=== PATIENT | female | born 1980 | race Caucasian/White ===

== ENCOUNTER 2022-10-25 02:37 | Day surgery (SDC) | payer OTHER, SELFPAY ==
[2022-10-18 14:03] VITALS: BMI 33.3
--- NOTE | 2022-10-18 14:14 | PC.NURSE ---
Report to the Outpatient Waiting Room, entrance under the green pavilion located off [facility], at 1000 on 10/25/22. Planned Procedure Time: 1200. Time changes happen often and if your time is changed the preop area will call you the afternoon before. - You and your visitor will be asked to self-screen and do not enter if you have any COVID symptoms. - Only one visitor is requested with a max of two and NO children visitors are allowed at this time. - The patient visitor may be requested to leave or wait in car when not with patient due to distancing restrictions. - A mask is optional within the hospital at this time. Patients may have clear liquids (water, carbonated beverages, clear teas, apple juice) until 3 hours prior to surgery with a maximum of 20 ounces. - No food from midnight until time of surgery Take the following medications with a SIP of water the morning of surgery: N/A DO NOT STOP ANY OF YOUR OTHER PRESCRIPTION MEDICATIONS PRIOR TO SURGERY ?EXCEPT THE FOLLOWING Medications to discontinue per physician N/A Date to take last dose N/A Please no make-up, nail arabic, hairspray, perfume, deodorant, or body powder the day of surgery. No jewelry (including any body piercings) or valuables the day of surgery, leave them at home. Please take a shower or bath the night before, or the morning of, surgery with an antibacterial soap. Wear comfortable, loose fitting clothing. - Jewelry must be removed prior to entering the operating room. Rings and piercings that are not removed may be cut off. - The hospital will not accept responsibility for valuables. - Please leave all valuables, including medications, at home the day of surgery. If you are going home after surgery, a licensed special needs bus driver must drive you home. - NO public transportation without another adult if you receive anesthesia. - We recommend that an adult stay with you for 24 hours following discharge. - We also recommend that you do not drive, make important decision, drink alcoholic beverages, or take any drugs that were not prescribed by your health care provider for at least 24 hours after your discharge time. Follow any additional instructions given to you from your surgeon. If you or anyone in your household have experienced Covid symptoms in the past week, please notify your surgeon or the nurse liaison at the phone number below for possible testing. Telephone instructions given to patient and asked if any additional questions and then verbalized understanding. Patient advised to call surgeon office or pre surgery nurse liaison [phone] if any additional questions.
--- NOTE | 2022-10-25 10:52 | WPDANESEPPF ---
Anes - Initial Pre Proc Eval Procedure: Operation Date: 10/25/22 12:00 Proposed Procedures p Excision of Left Subareolar Breast Cyst - Francis Davis DO Date/Time: 10/25/22 10:52 Surgeon: Francis Davis DO Pre Op Diagnosis: Left Breast Cyst (2cm) Patient Data Age: 42 Gender: F Height: 1.88 m Weight: 117.93 kg Allergies Allergy/AdvReac Type Severity Reaction Status Date / Time No Known Allergies Allergy Verified 10/18/22 14:02 Home Medications Medication Instructions Recorded Confirmed Type No Home Medications 10/18/22 10/18/22 History Patient hx anesthesia problems: none Family hx anesthesia problems: none Results Review: All pre-operative results and documents have been reviewed as part of the pre-operative evaluation. 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 Substance use: current Substance use type: marijuana Other substance usage details: daily Living arrangements: with family Occupation/Education: occupation 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 Informed Consent: The patient's anesthetic plan and its attendant risks and benefits were discussed with the patient/family/POA. Questions were solicited and answers provided to the satisfaction of the patient/family/POA.
[2022-10-25 11:00] VITALS: BP 125/80; PULSE 81; RESP 14; TEMP 36.3; O2SAT 99
[2022-10-25] MEDS: KETOROLAC 15 MG/ML VIAL (*BKC) IV PUSH ×2 (11:00)
[2022-10-25] MEDS: LACTATED RINGERS 1,000 ML 30 ML IV CONT (11:00)
[2022-10-25] MEDS: ACETAMINOPHEN 500 MG TABLET 1000 MG PO ×2 (11:00)
--- NOTE | 2022-10-25 11:43 | PM.IMHP ---
H&P: HPI History of Present Illness Date/Time: 10/25/22 11:43 Chief Complaint: Left breast cyst Narrative: 42 yo woman presents for excision of left breast cyst. She reports no changes since last seen in office. Review of Systems Review of Systems: All systems reviewed & are unremarkable except as noted in HPI and below Constitutional: Constitutional: Denies chills, Denies fever(s), Denies headache(s) and Denies weight loss Eyes: Eyes: Denies change in vision ENT: Denies dizziness, Denies headache(s), Denies neck mass and Denies throat swelling Cardiovascular: Cardiovascular: Denies chest pain, Denies lightheadedness and Denies dyspnea Respiratory: Respiratory: Denies cough, Denies dyspnea and Denies wheezing Gastrointestinal: Gastrointestinal: Denies abdominal pain, Denies change in bowel habits, Denies nausea and Denies vomiting Genitourinary: Genitourinary: Denies hematuria and Denies dysuria Musculoskeletal: Musculoskeletal: Reports as per HPI Integumentary/Breasts: Skin/Breast: Reports as per HPI Neurologic: Denies dizziness and Denies headache(s) Allergic/Immunologic: Allergic/Immunologic: Denies throat swelling and Denies wheezing PMF Past Medical History Medical History Anxiety Obesity Surgical History Surgical History History of knee surgery Family History Family History Father Family history of malignant neoplasm, Onset Age: 45 Mother Family history of coronary artery disease, Onset Age: 59 Social History Social History Smoking packs per day: 1 Smoking cigarettes per day: 20.0 Years smoked: 30 Smoking pack-years: 30.00 Smoking status: Former smoker Tobacco type: cigarettes Second hand tobacco smoke exposure: No Alcohol intake: former 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 Substance use: current Substance use type: marijuana Other substance usage details: daily Living arrangements: with family Occupation/Education: occupation 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 Spiritual care concerns: No Meds Home Medications and Allergies Home Medications Medication Instructions Recorded Confirmed Type No Home Medications 10/18/22 10/18/22 History Allergies Allergy/AdvReac Type Severity Reaction Status Date / Time No Known Allergies Allergy Verified 10/25/22 11:08 Vital Signs Vital Signs - 24 hr 10/25/22 11:00 Temperature 36.3 C L Pulse Rate 81 Respiratory Rate 14 Blood Pressure 125/80 Pulse Oximetry 99 Oxygen Delivery Room Air Exam Const: General: no acute distress and alert Orientation/consciousness: patient oriented x3 HENMT: Head: normocephalic and atraumatic Ears: hearing grossly normal bilaterally Face/Nose/Sinus: Normal nares present Mouth: Yes Normal oral and palatal mucosa present Eyes: Periorbital: periorbital findings normal Sclera: sclerae normal EOM: EOMs intact bilaterally Neck: Neck: normal visual inspection, no lymphadenopathy and trachea midline Chest: Chest palpation & inspection: normal inspection of the chest Other: 1-2 cm left breast cyst Resp: Effort & Inspection: normal respiratory effort Auscultation: clear to auscultation bilaterally Cardio: Jugular venous distension: no JVD Rate: regular rate Rhythm: regular rhythm Heart sounds: S1 normal heart sound present and S2 normal heart sound present Peripheral pulses: Peripheral pulses 2+ throughout GI: Inspection: normal to inspection GI Palp: Yes Soft to palpation, No Tenderness to palpation present (GI), No Guarding due to palpation present (GI) and No Rebound tenderness present Percussion: Yes normal to percussion Auscultation: normal bowel sounds : General: Yes no CVA tenderness B
--- NOTE | 2022-10-25 11:45 | WPDHPUPDATE1 ---
History and Physical Update Update Date/Time: 10/25/22 11:45 History and Physical has been reviewed, including an updated exam of the patient. There are NO changes in the patient's condition. Risks, benefits, and alternatives have been discussed and questions answered. Patient agrees to proceed with procedure.
[2022-10-25] MEDS: ceFAZolin 3 GM/D5W 100 ML 100 ML IVPB (11:52)
[2022-10-25] MEDS: LIDO 2%/EPINEPHRINE 1:100,000 50 ML VIAL 20 ML INFILTRATE (12:12)
--- NOTE | 2022-10-25 12:28 | W.PM.PROC2 ---
Procedure Note - Detailed Date of Procedure 10/25/22 Pre-op Diagnosis Left Breast Cyst (2cm) Post-op Diagnosis Same Procedure Performed 1. excision of 2 cm left breast subareolar cyst 2. layered closure Surgeon Francis Davis, DO Anesthesia MAC and Local (2% lidocaine with epinephrine) Indications This is a 42-year-old woman who presents with a recurring cyst on her left breast. She has a cyst in the lower inner quadrant of her left breast that periodically becomes swollen and drains. This is just deep to the nipple areola complex. She has had issues like this in the past that were treated with antibiotics and eventually resolved. This cyst continues to drain and cause pain. Discussions were made with the patient about treatment options and decision was made to proceed with excision the left breast subareolar cyst. Findings Excision of left breast subareolar cyst was performed. Cyst was completely excised and sent to the lab for pathology. No other pathologic abnormalities were noted within the subareolar region. The wound was then closed in layers using 3-0 Vicryl deep dermal interrupted sutures followed by 4-0 Monocryl running subcuticular suture. Description of Procedure Procedure as well as risks, benefits, and alternatives were discussed with the patient. Written consent was obtained and placed in chart prior to procedure. Patient was brought back to surgical suite. She was placed supine on operating table. Time-out was done to confirm patient and procedure. IV sedation was then administered by the anesthesia department. Her left breast area was prepped and draped in sterile fashion using chlorhexidine prep. 2% lidocaine with epinephrine was infiltrated locally around the cyst. A 3 cm curvilinear elliptical incision was then made using a 15 blade scalpel around the affected areolar skin. The subareolar cyst was completely excised with a 15 blade scalpel. The cyst was removed and sent to the lab for pathology. Electrocautery was then used for hemostasis. No other abnormalities were then noted. The deep dermis was approximated using 3-0 Vicryl inverted interrupted sutures. The skin was then approximated using 4-0 Monocryl running subcuticular suture. Exofin glue was then applied on top. The patient was then awakened from anesthesia and transferred to recovery. Estimated Blood Loss 5 Pathology Yes (Left breast 2 cm subareolar cyst) Complications No immediate complications Condition Stable Disposition Same day [facility] Billing Surgery - Charge Forward: Surgery Billing
[2022-10-25 12:33] VITALS: BP 113/69; PULSE 85; RESP 16; O2SAT 95
[2022-10-25 13:05] VITALS: BP 114/60; PULSE 68; RESP 16; O2SAT 95
[2022-10-25 13:35] VITALS: BP 103/60; PULSE 67; RESP 16
== END 2022-10-25 13:30 | disposition home or self-care (01) ==
PROVIDERS: Referring Provider Obstetrics & Gynecology; Visit Provider Surgery
DX: N61.1 Abscess of the breast and nipple (principal); Z87.891 Personal history of nicotine dependence; F12.90 Cannabis use, unspecified, uncomplicated; F10.21 Alcohol dependence, in remission; E66.9 Obesity, unspecified; Z68.35 Body mass index [BMI] 35.0-35.9, adult
CPT/HCPCS: 19120; 88305; A9270; J0690; J1885; J2250; J2405; J2704; J3010; J7120

== ENCOUNTER 2025-08-19 08:42 | Emergency (ER) | payer OTHER, SELFPAY ==
[2025-08-19] VITALS (18 sets, daily range): BP systolic 111–135; BP diastolic 67–123; PULSE 57–72; RESP 16–25; TEMP 36.4; O2SAT 95–100
--- NOTE | ~2025-08-19 | XR_ITS ---
Examination: XR chest 1V portable Clinical History: BACK PAIN Comparison: None Technique: Portable AP Findings: Heart size normal. Lungs clear. No acute bony abnormality. IMPRESSION: 1. No acute cardiopulmonary findings given portable technique. Reviewed, dictated and finalized at location R. AL BOATS CARETAKER
--- NOTE | 2025-08-19 08:59 | ECG_ITS ---
Test Date: 2025-08-19 09:09:58 Measurements Intervals [place] Rate: 59 P: 41 IN: 177 QRS: 6 QRSD: 96 T: 25 QT: 424 QTc: 423 Interpretive Statements SINUS BRADYCARDIA BORDERLINE ST-T WAVE ABNORMALITY- INFERIOR LEADS BASELINE WANDER- AVR, AVL, AVF BORDERLINE ECG No previous ECG available for comparison Electronically Signed On 08-19-2025 09:16:31 MOSAIC FLOOR LAYER by Domo Kelley D.O.
--- NOTE | 2025-08-19 09:12 | ED_ITS ---
HPI - General Adult General Chief complaint: Back Pain/Injury Stated complaint: back pain Time Seen by Provider: 08/19/25 08:49 History of Present Illness HPI narrative: Liz Gonzáles is a 45-year-old female who presents today with complaints of having severe left upper back pain. She states that she was in a normal state of health up until this morning when she was getting into her car and felt a severe pain in her mid upper back area and as she continued to drive the pain started to get more and more severe radiating to the left side of her upper back moving upward. She states that she got to work about 20 minutes later when she got in she broke into a cold sweat and started to get concerned that something series could be going on so she called 911 for EMS to bring her here. She denies shortness of breath but she states the pain is worse with breathing pain is worse with movement of her left arm. She reports that she does have a past medical history of hyperlipidemia, current smoker for 30 years about a pack a day in and family history myocardial infarctions around her age right now. Related Data Allergies Allergy/AdvReac Type Severity Reaction Status Date / Time No Known Allergies Allergy Verified 11/08/22 08:14 Review of Systems 2 Review of Systems: All systems reviewed & are unremarkable except as noted in HPI and below PMFSH Past Medical History Medical History Obesity Anxiety Surgical History Surgical History H/O excision of mass 10/25/22 excision of 2 cm left breast subareolar cyst 2. 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 HEAD: Normocephalic, atraumatic. EYES: PERRLA and EOMI. ENT: Nares clear, no rhinorrhea or epistaxis. Mucous membranes moist. Oropharynx without tonsillar hypertrophy exudate or other lesions. NECK: Supple. No adenopathy or masses. No carotid bruits or JVD CHEST: Clear to auscultation. No respiratory distress. No wheezes rales or rhonchi HEART: Regular rate and rhythm. No murmur heard. Normal peripheral pulses. ABDOMEN: Soft, nontender, nondistended, normal active bowel sounds. EXTREMITIES: Normal range of motion. No edema. SKIN: Warm, dry, no rash. NEURO: No focal deficits. Alert and oriented x3. PSYCH: Normal mood and affect. Course Vital Signs Vital signs: Vital Signs Temperature 36.4 C 08/19/25 08:42 Pulse Rate 60 08/19/25 08:42 Respiratory Rate 18 08/19/25 08:42 Blood Pressure 123/75 08/19/25 08:42 Pulse Oximetry 99 08/19/25 08:42 Oxygen Delivery Room Air 08/19/25 08:42 Temperature 36.4 C 08/19/25 08:42 Pulse Rate 61 08/19/25 13:02 Respiratory Rate 17 08/19/25 13:02 Blood Pressure 135/123 H 08/19/25 13:02 Pulse Oximetry 100 08/19/25 13:02 Oxygen Delivery Room Air 08/19/25 08:42 Vitals reviewed MDM MDM Narrative Medical decision making narrative: 45 y/o with complaints of having left-sided upper back pain that started after twisting to get inside of her car she states that she was driving the pain continued to get worse and when she gets got to work 20 minutes later she started to have a cold sweat and then called for EMS. She denies any chest pain no shortness of breath denies any recent injury or trauma or fall or exertional exercise. Pain is reproducible with movement and lifting up her left arm. Denies cough/ runny nose/ sore throat/ fever/chills Perc score- 0 EKG- Sinus Hugo CBC-leukocytosis 10.3 hemodynamically stable CMP-unremarkable Troponin 1-negative Troponin 2-Negative Chest x-ray-No acute cardiopulmonary findings. UA-3+ blood patient is on her menses at this time leukocytes +1 high blood cells 11-20 discussed these results the patient she confirms she is on her menses and she is not having any urinary symptoms she denies dysuria denies urgency denies frequency will hold off on treating this and wait for her culture Patient re-evaluated states that she is feeling better she feels ready to go home home she denies anything further at this time. Patient provided with strict return precautions if she develops any chest pain worsening symptoms shortness of breath to return she is agreeable to this plan this lies needing further at this time. Differential Diagnosis Differential Diagnosis: Concern for : muscle strain, cardiac event, spontaneous pneumo, URI, Pneumonia, PERC score is 0 less concern for PE Lab Data MDM Lab Attestation statement: I personally reviewed the patient's lab results. 08/19/25 09:13 08/19/25 09:13 Labs: Lab Results 08/19/25 08/19/25 Range/Units 09:13 11:49 WBC 10.3 H (4.5-10.0) K/mm3 RBC 4.88 (4.2-5.4) M/mm3 Hgb 14.5 (12.0-15.0) g/dL Hct 42.7 (37.0-47.0) % MCV 87.5 (80-100) fl MCH 29.7 (26-34) pg MCHC 34.0 (32-36) g/dl RDW 12.6 (11.5-14.5) % Plt Count 242 (150-375) k/mm3 MPV 10.1 (7.4-10.4) fl Immature Gran % (Auto) 0.4 (0-0.5) % Neut % (Auto) 72.7 (45.5-73.1) % Lymph % (Auto) 15.6 L (18.3-44.2) % Payne % (Auto) 7.6 (2.6-8.5) % Eos % (Auto) 3.4 (0-4.4) % Baso % (Auto) 0.3 (0.2-1.2) % Lymph # (Auto) 1.60 (0.9-3.2) K/mm3 Payne # (Auto) 0.8 H (0.1-0.6) K/mm3 Eos # (Auto) 0.4 H (0-0.3) K/mm3 Baso # (Auto) 0.0 (0.0-0.1) K/mm3 Abs Immat Gran (auto) 0.04 H (0.00-0.031) K/mm3 Absolute Neuts (auto) 7.5 H (1.3-6.7) K/mm3 Absolute Nucleated RBC 0.000 (0.0-0.012) K/mm3 Nucleated RBC % 0.0 (0.0-0.2) % Sodium 138 (137-145) mmol/L Potassium 4.0 (3.4-5.0) mmol/L Chloride 108 H (98-107) mmol/L Carbon Dioxide 23 (22-30) mmol/L Anion Gap 7 (4-12) mmol/L BUN 15 (7-17) mg/dL Creatinine 0.92 (0.7-1.0) mg/dL Estim Creat Clear Calc 99 ml/min Estimated GFR > 60 (59 - ) Glucose 94 (65-110) mg/dL Calcium 9.0 (8.4-10.2) mg/dL Total Bilirubin 0.3 (0.2-1.3) mg/dL AST 21 (14-36) U/L ALT 14 (6-35) U/L Alkaline Phosphatase 80 (38-126) U/L Troponin I < 0.012 0.020 D (0.000-0.034) ng/mL Total Protein 7.2 (6.3-8.2) g/dL Albumin 4.0 (3.5-5.1) g/dL Urine Color Yellow (Yellow) Urine Appearance Clear (Clear) Urine pH 6.0 (5.0-9.0) Ur Specific Waldron 1.008 (1.001-1.035) Urine Protein Trace (Negative) mg/dL Urine Glucose (UA) Negative (Negative) mg/dL Urine Ketones Negative (Negative) mg/dL Ur Blood (Man) 3+ H (Negative) Urine Nitrate Negative (Negative) Urine Bilirubin Negative (Negative) Urine Urobilinogen 0.2 (<2.0) mg/dL Leukocyte Esterase Rfl 1+ H (Negative) RONNELL/UL Urine RBC 51-100 H (0-2) /hpf Urine WBC 11-20 H (0-3) /hpf Ur Squamous Epith Cells None seen (Few) /hpf Urine Bacteria None seen /hpf Urine Casts 0-2 Imaging Data Radiologist's impression: ITS Impressions Chest X-Ray 08/19/25 09:43 IMPRESSION: 1. No acute cardiopulmonary findings given portable technique. ECG Data EKG #1: ECG completion date: 08/19/25 ECG completion time: 09:09 Prior ECG tracings: not available for review Interpretation: Rate: 59 P: 41 DC: 177 QRS: 6 QRSD: 96 T: 25 QT: 424 QTc: 423 Interpretive Statements SINUS BRADYCARDIA BORDERLINE ST-T WAVE ABNORMALITY- INFERIOR LEADS BASELINE WANDER- AVR, AVL, AVF BORDERLINE ECG No previous ECG available for comparison Electronically Signed On 08-19-2025 09:16:31 CYBER INTELLIGENCE ANALYST by Domo Kelley D.O. Discharge Plan Discharge Clinical Impression: Muscle strain Patient Disposition: Home Condition: Stable Instructions: Antibiotic Form, Muscle Spasm (ED) Additional Instructions: Continue to take the ibuprofen as ordered for the pain along with cyclobenzaprine for muscle spasm pain this may make you sleepy do not drive or operate machinery while taking the cyclobenzaprine. He may also do ice heat alternate light massage and stretching to help with the pain. I only expect her symptoms to improve if he develop any new or worsening symptoms he will need to return to the emergency department. Patient Language: Maldivian Prescriptions: New cyclobenzaprine 10 mg tablet 10 mg PO TID PRN (Reason: muscle spasm) Qty: 30 0RF ibuprofen 600 mg tablet 600 mg PO TID PRN (Reason: pain) Qty: 30 0RF Follow-up/Referrals: PHYSICIAN,PRODUCT ACCOUNTANT [Non-Staff, Internal Medicine] Stand Alone Forms: Work/School Release IP Time of Disposition: 13:04
[2025-08-19] MEDS: ASPIRIN 81 MG CHEWABLE TABLET 324 MG PO (09:19)
[2025-08-19] MEDS: CYCLOBENZAPRINE HCL 10 MG TABLET PO (09:20)
[2025-08-19 09:21] LABS: Hematocrit 42.7 % (37.0-47.0); Hemoglobin 14.5 g/dL (12.0-15.0); Immature Granulocyte Percent A 0.4 % (0-0.5); Lymphocytes Absolute Auto 1.60 K/mm3 (0.9-3.2); Mean Corpuscular HGB Conc 34.0 g/dl (32-36); Mean Corpuscular Hemoglobin 29.7 pg (26-34); Mean Corpuscular Volume 87.5 fl (80-100); Nucleated Red Blood Cells Absolute Auto 0.000 K/mm3 (0.0-0.012); Nucleated Red Blood Cells Perc 0.0 % (0.0-0.2); Platelet Count Result 242 k/mm3 (150-375); Red Blood Count 4.88 M/mm3 (4.2-5.4); White Blood Count 10.3 K/mm3 (4.5-10.0)
[2025-08-19 09:30] LABS: Alanine Aminotransferase 14 U/L (6-35); Albumin Level 4.0 g/dL (3.5-5.1); Alkaline Phosphatase 80 U/L (38-126); Anion Gap 7 mmol/L (4-12); Aspartate Amino Transferase 21 U/L (14-36); Bilirubin,Total 0.3 mg/dL (0.2-1.3); Blood Urea Nitrogen 15 mg/dL (7-17); Calcium 9.0 mg/dL (8.4-10.2); Carbon Dioxide 23 mmol/L (22-30); Chloride 108 mmol/L (98-107); Estimated CRCL calculation 99 ml/min; Estimated Glomerular Filt Rate > 60; Glucose 94 mg/dL (65-110); Potassium 4.0 mmol/L (3.4-5.0); Sodium 138 mmol/L (137-145); Total Protein 7.2 g/dL (6.3-8.2)
--- OUTSIDE RECORDS SUMMARY | 2025-08-19 09:38 | XMS_ITS | Encounter Summary ---
Author Organization [facility] Address 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 Gender Identity Not on file Sexual Orientation Not on file documented as of this encounter Plan of Treatment Not on file documented as of this encounter Procedures Procedure Name Priority Date/Time Associated Diagnosis Comments XR KNEE 3 VW RIGHT Routine 01/16/2009 9: 41 AM CDT documented in this encounter Results * XR KNEE 3 VW RIGHT (01/16/2009 9:41 AM CDT) Anatomical Region Laterality Modality Lower Extremity Other 01/16/2009 9:41 AM CDT Narrative 01/16/2009 10:06 AM CDT [address] [address] Admit Date: 01/16/2009 LIZ CORRALES Sex: F Admit Prov: AUBREY ALLRED Date: 1980 Primary Care Prov: PCP, NONE CMRN: [id number] Room: [facility] SSN: [id number] IMAGING SERVICES Ordering Prov: N/A Accession Number: [id number] Interpretation RIGHT KNEE 01/16/09 Clinical History: Pain and inability to straighten knee. AP, intercondylar notch, and lateral views demonstrate no evidence of fracture. A moderate to large knee joint effusion is present. No significant degenerative change is seen. IMPRESSION: No fracture. Moderate to large knee joint effusion. . Dictated by: ALEM BURKS 01/16/2009 09:56 Electronically signed by: ALEM BURKS01/16/2009 10:04 Transcribed: 01/16/2009 10:03 Procedure Note Alem Lynn MD - 01/16/2009 [facility] [place] [address] [place], [place] [address] Admit Date: 01/16/2009 LIZ CORRALES Sex: F Admit Prov: AUBREY ALLRED Date: 1980 Primary Care Prov: PCP, NONE CMRN: [id number] Room: [facility] SSN: [id number] IMAGING SERVICES Ordering Prov: N/A Interpretation RIGHT KNEE 01/16/09 Clinical History: Pain and inability to straighten knee. AP, intercondylar notch, and lateral views demonstrate no evidenceof fracture. A moderate to large knee joint effusion is present. No significant degenerative change is seen. IMPRESSION: No fracture. Moderate to large knee joint effusion. . Dictated by: ALEM BURKS 01/16/2009 09:56 Electronically signed by: ALEM BURKS01/16/2009 10:04 Transcribed: 01/16/2009 10:03 us Aubrey Larios Mai, MD DIAGNOSTIC IMAGING ORDERABLES Fi nal Result documented in this encounter Visit Diagnoses Not on filedocumented in this encounter
--- OUTSIDE RECORDS SUMMARY | 2025-08-19 09:38 | XMS_ITS | Clinical Summary ---
Author Organization [facility] Medical Office Building [address] Address [address] [place] [address] Care Team Providers Care Bottle House Quality Control Technician Name Role Phone Kenton Roman MD Primary Care Provi adolfo Bee Williamson MD Unavailable [phone] Allergies No known active allergies Medications calcipotriene (DOVONOX) 0.005 % ointment Apply topically 2 (two) times a day For flares: Apply to psoriatic areas on body twice a day until flat. Do not apply to face. For maintenance: Use twice a day every day 60 g 07/03/20 25 026 Active Additional Information Patient not taking.Reported on 08/05/2025 triamcinolone (KENALOG) 0.025 % creamIndications :Skin Inflammation Apply topically 2 (two) times a day For flares: Apply twice a day until flat. Do not use on face or genitals. For maintenance: Use on hot spots. On the weekends only. Do not apply to face or genitals. This is for sensitive areas like the ears. 30 g 07/03/20 25 Active Additional Information Patient not taking.Reported on 08/05/2025 triamcinolone (KENALOG) 0.05 % ointment Apply 1 g (1 Application total) topically 2 (two) times a day as needed (for psoriasis flares) For flares: Apply twice a day until flat. Do not use on face or genitals. For maintenance: Use on weekends only for hot spot areas. This is for your elbows. 430 g 2 07/03/20 Active Additional Information Patient not taking.Reported on 08/05/2025 rosuvastatin (CRESTOR) 5 mg tablet Take 1 tablet (5 mg total) by mouth nightly 90 tablet 3 08/05/20 Active tirzepatide, weight loss, (Zepbound) 2.5 mg/0.5 mL pen injectorIndicati ons:Weight Loss Management for Obese Patient (BMI >= 30) Inject 0.5 mL (2.5 mg total) under the skin every 7 days 6 mL 3 08/15/20 25 Active tirzepatide, weight loss, (Zepbound) 2.5 mg/0.5 mL pen injectorIndicati ons:Weight Loss Management for Obese Patient (BMI >= 30) Inject 0.5 mL (2.5 mg total) under the skin every 7 days 6 mL 3 08/05/20 25 025 Discontin ued(Reord er) Active Problems Problem Noted Date Diagnosed Date Dyslipidemia 08/14/2025 Assessment & Plan (08/14/2025 8:57 PM CHANNEL MARKETING COORDINATOR): Chronic. Last LDL above goal of less than 70. Previously naive to treatment. Plan: Start rosuvastatin 5 mg q.h.s.. Lipid panel ordered. Continue lifestyle modifications and working towards a goal of increased activity. Thumb pain, left 08/14/2025 Assessment & Plan (08/14/2025 8:59 PM CHANNEL MARKETING COORDINATOR): Status post acute fall and urgent care visit. Symptoms improving at this time with bracing. Plan: Continue supportive care. Return precautions provided. Snoring 08/05/2025 Assessment & Plan (08/14/2025 8:55 PM CHANNEL MARKETING COORDINATOR): See assessment and plan for chronic fatigue. BMI 37.0-37.9, adult 08/05/2025 Assessment & Plan (08/14/2025 8:54 PM CHANNEL MARKETING COORDINATOR): Body mass index is 37.7 kg/m . Not at goal with recommended goal of BMI 20-25. Chronic. Without known contraindication of GLP 1 at this time. Plan: Recommend continued lifestyle modifications and working towards a goal of exercise >150 mins/wk Trial of GLP 1 Zepbound 2.5mg Q weekly Chronic fatigue 08/05/2025 Assessment & Plan (08/14/2025 8:55 PM CHANNEL MARKETING COORDINATOR): Endorsing a crying history of fatigue. Concerns for potential obstructive sleep apnea based on symptoms. Plan: Referral to sleep Medicine for potential sleep study. Rx for Zepbound additionally provided. Recommend continued lifestyle modifications. History of alcohol use disorder 07/03/2025 Assessment & Plan (08/14/2025 8:49 PM CHANNEL MARKETING COORDINATOR): In remission. Sobriety since approx. 2016. Is established with alcohol [employer]. Denies any cravings at this time. Plan: Supportive care Continue to monitor for cessation. Assessment & Plan (07/03/2025 2:40 PM CHANNEL MARKETING COORDINATOR): In remission. Sobriety since approx. 2016. In his established with alcohol [employer].. Denies any cravings at this time. Plan: Supportive care Continue to monitor for cessation. Psoriasis 06/29/2025 Assessment & Plan (08/14/2025 8:50 PM CHANNEL MARKETING COORDINATOR): Improving control. Principal areas of elbows, intertriginous folds and left ear. Now with a maintenance skin regimen. Exacerbated during dry months. Duobrii and Vtama Not covered with patient's present insurance plan. Plan: Continue a maintenance regimen with colloidal and hydrating products. Recommend avoidance of sent and fragrance products. Continue trial of topical steroids PRN for flares along with topical vitamin-D. Rx of 0.025% cream for ears and 0.05 % ointment for elbows. Steroid cream precautions given. Have ensured covered with insurance. If refractory, to benefit from referral to Dermatology and/or consideration of biologics. Return precautions provided. Assessment & Plan (07/03/2025 2:37 PM CHANNEL MARKETING COORDINATOR): Uncontrolled. Principal areas of elbows, intertriginous folds and left ear. Without a maintenance skin regimen at this time. Exacerbated during dry months. Duobrii and Vtama Not covered with patient's present insurance plan. Plan: Recommended to begin incorporating a maintenance regimen with colloidal and hydrating products. Recommend avoidance of sent it and fragrance products. Recommend trial of topical steroids PRN for flares along with topical vitamin-D. Rx of 0.025% cream for ears and 0.05 % ointment for elbows. Steroid cream precautions given. If refractory, to benefit from referral to Dermatology and/or consideration of biologics. Return precautions provided. Impaired fasting glucose 06/29/2025 Assessment & Plan (07/03/2025 2:06 PM CHANNEL MARKETING COORDINATOR): Risk factor BMI. DM 2 important to rule out. Discussed recommendation with the patient who agrees. Plan: A1c ordered. Continue lifestyle modifications. Lipid screening 06/29/2025 Assessment & Plan (07/03/2025 2:06 PM CHANNEL MARKETING COORDINATOR): Risk factors of BMI. Dyslipidemia important to rule out. Discussed recommendation with the patient who agrees. Plan: Lipid panel ordered. Recommend continue lifestyle modifications. Irregular bleeding 06/29/2025 Assessment & Plan (07/03/2025 2:38 PM CHANNEL MARKETING COORDINATOR): Endorsing early family history of menopause. Presently with menstruations Q 4 months. Potentially early stages. Plan: Supportive care. Return precautions provided. Will need follow up to address prior Pap history. Tobacco use disorder 01/15/2014 Overview (12/06/2016): TOBACCO USE DISORDER Assessment & Plan (08/14/2025 8:52 PM CHANNEL MARKETING COORDINATOR): Ready to quit: Yes Counseling given: Yes Chronic Plan: Recommend cessation Advised of health risks w/ continued consumption. Assessment & Plan (07/03/2025 2:05 PM CHANNEL MARKETING COORDINATOR): Ready to quit: Yes Counseling given: Yes Chronic Plan: Recommend cessation Advised of health risks w/ continued consumption. Resolved Problems Problem Noted Date Diagnosed Date Resolved Date Class 2 severe obesity due t o excess calories with serious comorbidity and body mass index (BMI) of 39.0 to 39.9 in adult 01/15/2014 Overview (12/06/2016): OBESITY NOS Assessment & Plan (07/03/2025 2:43 PM CHANNEL MARKETING COORDINATOR): Body mass index is 39.58 kg/m . Not at goal with recommended goal of BMI 20-25. Chronic. Desiring pharmacological assistance if possible. Denying known family history of thyroid cancer personal history of pancreatic cancer. Plan: Recommend continued lifestyle modifications and working towards a goal of exercise >150 mins/wk Will start with labs to rule out metabolic causes Have asked to ask insurance on potential coverage allowances. To consider Rx of GLP1s based on coverage. Discussed potential pharmacological options & review of effectiveness when combined w/ lifestyle modifications Labs to rule out metabolic causes. Arthralgia of lower leg 01/15/201410/2024 Overview (12/06/2016): JOINT PAIN-L/LEG Gastroesophageal reflux disease 01/15/2014 07/03/2025 Overview (12/06/2016): ESOPHAGEAL REFLUX Malaise and fatigue 01/15/2014 06/29/20 25 Overview (12/06/2016): MALAISE AND FATIGUE NEC Insomnia 01/15/2014 06/29/2025 Overview (12/06/2016): INSOMNIA NEC Screening status 01/15/2014 07/03/2025 Overview (12/06/2016): SCREEN LIPOID DISORDERS Atopic rhinitis 01/15/2014 07/03/2025 Overview (12/06/2016): ALLERGIC RHINITIS NOS Multiple-type hyperlipidemia 01/15/2014 07/03/2025 Overview (12/06/2016): MIXED HYPERLIPIDEMIA Nervousness 01/15/2014 06/29/2025 Overview (12/06/2016): NERVOUSNESS Vitamin D deficiency 01/15/2014 025 Overview (12/06/2016): VITAMIN D DEFICIENCY NOS Encounters Date Type Department Care Team Description 08/05/2025 9:00 AM CHANNEL MARKETING COORDINATOR Office Visit [facility] Primary Care at [address] [phone] Kenton Roman MD Dyslipidemia (Primary Dx); Psoriasis; BMI 37.0-37.9, adult; Chronic fatigue; Snoring; History of alcohol use disorder; Tobacco use disorder; Thumb pain, left 08/05/2025 Telephone [facility] Primary Care at [address] [phone] Kenton Roman MD 08/01/2025 10:00 AM CHANNEL MARKETING COORDINATOR - 08/01/2025 11:59 PM CHANNEL MARKETING COORDINATOR Hospital Encounter [facility] Radiology - Outpatient Center at [address] [address] Injury of left thumb, initial encounter Discharge Disposition: Discharge to home or self care 08/01/2025 9:15 AM CHANNEL MARKETING COORDINATOR Office Visit [facility] Care at [address] [place] [address] Liz Finley NP Injury of left thumb, initial encounter (Primary Dx) 07/11/2025 7:40 AM CHANNEL MARKETING COORDINATOR Lab [address] [address] Class 2 severe obesity due to excess calories with serious comorbidity and body mass index (BMI) of 39.0 to 39.9 in adult; Lipid screening; Impaired fasting glucose; Irregular bleeding 06/29/2025 2:00 PM CDT Office Visit [facility] Primary Care at [address] [phone] Kenton Roman MD Psoriasis (Primary Dx); Class 2 severe obesity due to excess calories with serious comorbidity and body mass index (BMI) of 39.0 to 39.9 in adult; Impaired fasting glucose; Lipid screening; Irregular bleeding; Tobacco use disorder; History of alcohol use disorder from Last 3 Months Immunizations Immunization Administration Dates Next Due Influenza, Unspecified 06/29/2025(Deferred: Adriana ent Refused) TD Preservative Free 09/01/2008 Td, adsorbed 08/01/2008 Surgical History Surgery Date Site/Laterality Comments TONSILLECTOMY 1982 Tonsillectomy ANTERIOR CRUCIATE LIGAMENT REPAIR Family History Medical History Relation Name Comments Leukemia Father Cancer -leukemi a; Cause of : Cancer -leukemia Hypertension Maternal Grandfather Hyperte nsion; Stroke Maternal Grandfather Stroke; Cause of : Stroke Other Maternal Grandmother RA/OA; Coronary artery disease Mother Jenn nary artery disease; Heart attack Mother Myocardial infa rction; Hyperlipidemia Mother Hyperlipidemi a; Hypertension Mother Hypertension; Obesity Mother Obesity; Other Mother s/p stent x3 pl acement; Diabetes type II Mother's Brother Diabete s -Type II; Lung cancer Paternal Grandmother Cancer -lung; Cause of : Cancer -lung Relation Name Status Comments Father Maternal Grandfather Maternal Grandmother Mother Mother's Brother Paternal Grandmother Social History Tobacco Use Types Packs/Day Years Used Date Smoking Tobacco: Every Day Cigarettes 0.8 36 Started: 09/01/1989 Smokeless Tobacco: Never Tobacco Cessation:Ready to Q uit: Yes; Counseling Given: Yes Alcohol Use Standard Drinks/Week Comments Not Currently 0 (1 standard drink = 0.6 oz pur e alcohol) PHQ-2 Answer Date Recorded PHQ-2 Total Score (If total score is 3 or more points, staff should administer the PHQ-9) 0 08/05/2025 AUDIT-C Answer Date Recorded Q1: How often do you have a drink containing alcohol? Never 08/05/2025 Q2: How many drinks containi ng alcohol do you have on a typical day when you are drinking? Patient does not drink Q3: How often do you have si x or more drinks on one occasion? Never 08/05/2025 Personal Safety Answer Date Recorded Have you ever been in or are you currently in a harmful physical or emotional relationship or is someone making you feel afraid or unsafe? Denies 01/13/2025 Comments No Sex and Gender Information Value Date Recorded Sex Assigned at Not on file Legal Sex Female 1:01 AM CHANNEL MARKETING COORDINATOR Gender Identity Not on file Sexual Orientation Not on file Obstetrics History Para Term AB IAB SAB Ectopic Multiple Livin g Live Births 0 0 0 Last Filed Vital Signs Vital Sign Reading Time Taken Comments Blood Pressure 110/74 08/05/2025 8:58 AM CHANNEL MARKETING COORDINATOR Pulse 88 08/05/2025 8:58 AM CHANNEL MARKETING COORDINATOR Temperature 37 C (98.6 F) 08/05/2025 8:58 AM CHANNEL MARKETING COORDINATOR Respiratory Rate 18 08/05/2025 8:58 AM CHANNEL MARKETING COORDINATOR Oxygen Saturation 96% 08/05/2025 8:58 AM CHANNEL MARKETING COORDINATOR Inhaled Oxygen Concentration - - Weight 126.1 kg (278 lb) 08/05/2025 8:58 AM CHANNEL MARKETING COORDINATOR Height 182.9 cm (6') 08/05/2025 8:58 AM CHANNEL MARKETING COORDINATOR Body Mass Index 37.7 08/05/2025 8:58 AM CHANNEL MARKETING COORDINATOR Plan of Treatment Health Maintenance Due Date Last Done Comments Cervical Cancer Screening 1978 Colon Cancer Screening-Colonoscopy 1978 Hepatitis C Screening 1978 Hepatitis B Screening 1996 Regular Well Visit/Exam 18-64 1996 Pneumococcal vaccine <65 (1 of 2 - PCV) 1997 DTaP/Tdap/Td Vaccine (1 - Tdap) 09/02/2008 9, 08/01/2008 Breast Cancer Screening-Mammogram 01/09/2024 023 Covid-19 Vaccine (3 - season) 05/02/202507/2021, 12/26/2020 Influenza Vaccine (#1) 2025 Depression Screening 08/05/2026 08/05/2025, 06/29/20 25 Procedures Procedure Name Priority Date/Time Associated Diagnosis Comments XR FINGER THUMB LEFT Schedule PAPITO, Read PAPITO (Appt Today, Awaiting Results) 08/01/2025 10:10 AM CHANNEL MARKETING COORDINATOR Injury of left thumb, initial encounter EGFR Routine 07/11/2025 7:41 AM CHANNEL MARKETING COORDINATOR Class 2 severe obesity due to excess calories with serious comorbidity and body mass index (BMI) of 39.0 to 39.9 in adult DIFFERENTIAL AUTO Routine 07/11/2025 7:4 1 AM CHANNEL MARKETING COORDINATOR Irregular bleeding CBC WITH AUTO DIFFERENTIAL Routine 07/11/2025 7:41 AM CHANNEL MARKETING COORDINATOR Irregular bleeding THYROID FUNCTION CASCADE Routine 07/11/2025 7:41 AM CHANNEL MARKETING COORDINATOR Class 2 severe obesity due to excess calories with serious comorbidity and body mass index (BMI) of 39.0 to 39.9 in adult HEMOGLOBIN A1C Routine 07/11/2025 7:41 AM CHANNEL MARKETING COORDINATOR Impaired fasting glucose LIPID PANEL Routine 07/11/2025 7:41 AM CHANNEL MARKETING COORDINATOR Lipid screening COMPREHENSIVE METABOLIC PANEL Routine 07/11/2025 7:41 AM CHANNEL MARKETING COORDINATOR Class 2 severe obesity due to excess calories with serious comorbidity and body mass index (BMI) of 39.0 to 39.9 in adult SCREENING MAMMOGRAM BILATERAL W MICHEL Schedule Routine, Read Routine (OP Routine) 01/08/2023 4:25 PM CDT Encounter for screening mammogram for malignant neoplasm of breast from Last 3 Months or Most Recently Relevant to Health Maintenance Results * XR Finger Thumb Left Minimum 2 Views (08/01/2025 10:10 AM CHANNEL MARKETING COORDINATOR) Anatomical Region Laterality Modality Upper Extremities, Hand, Fingers Left Computed Radiography 08/01/2025 10:2 0 AM CHANNEL MARKETING COORDINATOR Impressions 08/01/2025 10:20 AM CHANNEL MARKETING COORDINATOR 1. Mild soft tissue swelling involving the first of the left hand without definite evidence acute displaced fracture or dislocation. Electronically signed by: Promise Mata D.O. Narrative 08/01/2025 10:20 AM CHANNEL MARKETING COORDINATOR STUDY DESCRIPTION: XR FINGER THUMB LEFT MINIMUM 2 VIEWS ORDERING HEALTHCARE PROVIDER: LIZ FINLEY CLINICAL INDICATIONS: Hand trauma, thumb injury suspected difficulty in using thumb after injury, concdrned about fracturein proximal joint dislocation or fracture of thumb - injured with fall on ice 2 days ago. Continued pain at base of thumb josé manuel with movement.. COMPARISON: None TECHNIQUE: 3 views left hand first digit. FINDINGS: There is no definite evidence acute displaced fracture or dislocation involving the first digit left hand. There is mild soft tissue swelling. Procedure Note Promise Maat, - 08/01/2025 STUDY DESCRIPTION: XR FINGER THUMB LEFT MINIMUM 2 VIEWS ORDERING HEALTHCARE PROVIDER: LIZ FINLEY CLINICAL INDICATIONS: Hand trauma, thumb injury suspected difficulty in using thumb after injury, concdrned about fracturein proximal joint dislocation or fracture of thumb - injured with fall on ice 2 days ago. Continued pain at base of thumb josé manuel with movement.. COMPARISON: None TECHNIQUE: 3 views left hand first digit. FINDINGS: There is no definite evidence acute displaced fracture or dislocation involving the first digit left hand. There is mild soft tissue swelling. IMPRESSION: 1. Mild soft tissue swelling involving the first of the left hand without definite evidence acute displaced fracture or dislocation. Electronically signed by: Promise Mata D.O. us Liz Finley PRODUCT SPECIALIST IMG XR PROCEDURES Final Result * eGFR (07/11/2025 7:41 AM CHANNEL MARKETING COORDINATOR) eGFR 75 >=60 mL/min/1. 73 m2 Comment: Interpretive Data Reference Interval Normal >/= 90 mL/min/1.73m2 Mildly decreased* 60 - 89 mL/min/1.73m2 Mildly to moderately decreased 45 - 59 mL/min/1.73m2 Moderately to severely decreased 30 - 44 mL/min/1.73m2 Severely decreased 15 - 29 mL/min/1.73m2 Kidney Failure < 15 mL/min/1.73m2 *Relative to young adult level Estimated glomerular filtration rate is determined by the 2020 CKD-EPI equation recommended by the National Kidney Foundation (A Unifying Approach to GFR Estimation: Recommendations of the NKF-ASK Task Force on Reassessing the Inclusion of Race in Diagnosing Kidney Disease, JASN 2020). The CKD-EPI equation should not be used for patients with unstable renal function and has not been validated in children and those over 70. Current interpretive data was last reviewed 2021. Blood 07/11/2025 7:41 AM CHANNEL MARKETING COORDINATOR 07/11/2025 9:12 AM CHANNEL MARKETING COORDINATOR Kenton Roman MD LAB BLOOD ORDERABLE S Final Result [facility] ([place]) 1 [facility] Department [place] [address] * (ABNORMAL) Differential, auto (07/11/2025 7:41 AM CHANNEL MARKETING COORDINATOR) Neutrophil abs 6.60(H) 1.50 - 6.50 K/cumm Imm gran abs 0.03 0.00 - 0.10 K/cumm [facility] ([place]) Lymphocyte abs 2.71 0.80 - 3.30 K/cumm [facility] ([place]) Monocyte abs 0.88(H) 0.20 - 0.80 K/cumm [facility] ([place]) Eosinophil abs 0.61(H) 0.00 - 0.50 K/cumm [facility] ([place]) Basophil abs 0.04 0.00 - 0.10 K/cumm [facility] ([place]) Neutrophil pct 60.7 % [facility] ([place]) Comment: Interpretive Data Percent cell count reference ranges are not reported, since discordance with absolute values may lead to misinterpretation of CBC data. Current Interpretive Data was last revised on 2017. Imm gran pct 0.3 % [facility] ([place]) Comment: Interpretive Data Percent cell count reference ranges are not reported, since discordance with absolute values may lead to misinterpretation of CBC data. Current Interpretive Data was last revised on 2017. Lymphocyte pct 24.9 % [facility] ([place]) Comment: Interpretive Data Percent cell count reference ranges are not reported, since discordance with absolute values may lead to misinterpretation of CBC data. Current Interpretive Data was last revised on 2017. Monocyte pct 8.1 % [facility] ([place]) Comment: Interpretive Data Percent cell count reference ranges are not reported, since discordance with absolute values may lead to misinterpretation of CBC data. Current Interpretive Data was last revised on 2017. Eosinophil pct 5.6 % [facility] ([place]) Comment: Interpretive Data Percent cell count reference ranges are not reported, since discordance with absolute values may lead to misinterpretation of CBC data. Current Interpretive Data was last revised on 2017. Basophil pct 0.4 % [facility] ([place]) Comment: Interpretive Data Percent cell count reference ranges are not reported, since discordance with absolute values may lead to misinterpretation of CBC data. Current Interpretive Data was last revised on 2017. Blood 07/11/2025 7:41 AM CHANNEL MARKETING COORDINATOR 07/11/2025 9:12 AM CHANNEL MARKETING COORDINATOR Kenton Roman MD LAB BLOOD ORDERABLE S Final Result Performing Organization Address City/[facility]/ZIP Co de Phone Number [facility] ([place]) 1 [facility] [place] [address] * Thyroid Function [place] (07/11/2025 7:41 AM CHANNEL MARKETING COORDINATOR) Pathologist [facility] TSH 2.63 0.30 - 4.20 mcIUnit/mL Blood 07/11/2025 7:41 AM CHANNEL MARKETING COORDINATOR 07/11/2025 9:12 AM CHANNEL MARKETING COORDINATOR Kenton Roman MD LAB BLOOD ORDERABLE S Final Result Performing Organization Address City/[facility] de Phone Number [facility] ([place]) 1 [facility] [place] [address] * (ABNORMAL) CBC with auto differential (07/11/2025 7:41 AM CHANNEL MARKETING COORDINATOR) Pathologist [facility] WBC 10.87(H) 3.80 - 9.90 K/cumm Hgb 15.4 11.9 - 15.5 g/dL [facility] ([place]) Hct 44.7 35.6 - 45.5 % [facility] ([place]) Plt 262 150 - 400 K/cumm [facility] ([place]) MPV 10.6 9.1 - 12.3 fL [facility] ([place]) RBC 5.19 3.90 - 5.20 M/cumm [facility] ([place]) MCV 86.1 81.3 - 96.4 fL [facility] ([place]) MCH 29.7 27.1 - 33.3 pg [facility] ([place]) MCHC 34.5 32.3 - 35.7 g/dL [facility] ([place]) RDW CV 12.7 11.1 - 14.9 % [facility] ([place]) RDW SD 39.8 35.7 - 48.1 fL [facility] ([place]) NRBC abs 0.00 0.00 - 0.01 K/cumm [facility] ([place]) Blood 07/11/2025 7:41 AM CHANNEL MARKETING COORDINATOR 07/11/2025 9:12 AM CHANNEL MARKETING COORDINATOR Kenton Roman MD LAB BLOOD ORDERABLE S Final Result Performing Organization Address [facility] de Phone Number [facility] [address] [place] [address] * Hemoglobin A1c (07/11/2025 7:41 AM CHANNEL MARKETING COORDINATOR) Hgb A1C 5.3 4.0 - 5.6 % Estimated Average Glucose 105 mg/dL [facility] ([place]) Comment: The ADA recommends reporting an estimated Average Glucose (eAG) with all Hemoglobin A1c results using the equation derived from a study of 507 normal and diabetic adults. Minority populations were underrepresented and children were not included. (Diabetes Care 31:5307-0334, 2008). The eAG is not equivalent to a fasting glucose. Blood 07/11/2025 7:41 AM CHANNEL MARKETING COORDINATOR 07/11/2025 9:12 AM CHANNEL MARKETING COORDINATOR Kenton Roman MD LAB BLOOD ORDERABLE S Final Result Performing Organization Address [facility] de Phone Number [facility] ([place]) [address] [place] [address] * (ABNORMAL) Lipid panel (07/11/2025 7:41 AM CHANNEL MARKETING COORDINATOR) Cholesterol 240(H) 30 - 199 mg/dL Comment: Interpretive Data Ages < or = 19 years Acceptable: <170 mg/dL Borderline high: 170-199 mg/dL High: >or= 200 mg/dL Ages > or = 20 years Desirable: <200 mg/dL Borderline high: 200-239 mg/dL High: >or= 240 mg/dL Literature References: 1. Expert Panel on Integrated Guidelines for Cardiovascular Health and Risk Reduction in Children and Adolescents. Pediatrics 2011;128:S213 2. NCEP Expert Panel. Circulation 2004;110:227 Current Interpretive Data was last revised on 2018. Triglycerides 164(H) <=149 mg/dL [facility] ([place]) Comment: Interpretive Data Ages < or = 9 years Acceptable: <75 mg/dL Borderline high: 75-99 mg/dL High: >or= 100 mg/dL Ages 10 to 20 years Acceptable: <90 mg/dL Borderline high: 90-129 mg/dL High: >or= 130 mg/dL Ages > or = 20 years Desirable: <150 mg/dL Borderline high: 150-199 mg/dL High: 200-499 mg/dL Very high: >or= 499 mg/dL Literature References: 1. Expert Panel on Integrated Guidelines for Cardiovascular Health and Risk Reduction in Children and Adolescents. Pediatrics 2011;128:S213 2. NCEP Expert Panel. Circulation 2004;110:227 Current Interpretive Data was last revised on 2018. HDL 35(L) >=40 mg/dL [facility] ([facility]) Comment: Interpretive Data Ages < or = 19 years Acceptable: >45 mg/dL Borderline low: 40-45 mg/dL Low: <40 mg/dL Ages > or = 20 years Desirable: >or= 60 mg/dL Low: <40 mg/dL Literature References: 1. Expert Panel on Integrated Guidelines for Cardiovascular Health and Risk Reduction in Children and Adolescents. Pediatrics 2011;128:S213 2. NCEP Expert Panel. Circulation 2004;110:227 Current Interpretive Data was last revised on 2018. LDL, calculated 174(H) <=129 mg/dL [facility] ([facility]) Comment: Interpretive Data Ages < or = 19 years Acceptable: <110 mg/dL Borderline high: 110-129 mg/dL High: >or= 130 mg/dL Ages > or = 20 years Optimal: <100 mg/dL Near optimal: 100-129 mg/dL Borderline high: 130-159 mg/dL High: >160 mg/dL Calculated using the Pinzon LDL-C estimating equation. This equation was implemented on 2024. Prior to this date LDL-C was estimated using the Friedewald equation. Literature References: 1. Expert Panel on Integrated Guidelines for Cardiovascular Health and Risk Reduction in Children and Adolescents. Pediatrics 2011;128:S213 2. NCEP Expert Panel. Circulation 2004;110:227 3. Jeromy M et al. ADAM Cardiol. 2020 December 30;5(5):540-548. doi: 10.1001/[email or web address].2020.0013 Current Interpretive Data was last revised on 2024. Non-HDL Cholesterol 205 mg/dL [facility] ([facility]) Comment: Interpretive Data Ages < or = 19 years Acceptable: <120 mg/dL Borderline high: 120-144 mg/dL High: >145 mg/dL Ages > or = 20 years When triglycerides are >200 mg/dL, Non-HDL cholesterol is a secondary target of therapy with treatment goals that are 30 mg/dL greater than the LDL cholesterol target. Literature References: 1. Expert Panel on Integrated Guidelines for Cardiovascular Health and Risk Reduction in Children and Adolescents. Pediatrics 2011;128:S213 2. NCEP Expert Panel. Circulation 2004;110:227 Current Interpretive Data was last revised on 2018. Chol/HDL ratio 7 [facility] ([facility]) Blood 07/11/2025 7:41 AM CHANNEL MARKETING COORDINATOR 07/11/2025 9:12 AM CHANNEL MARKETING COORDINATOR Kenton Roman MD LAB BLOOD ORDERABLE S Final Result [facility] ([facility]) [facility] Department [place] [address] * Comprehensive metabolic panel (07/11/2025 7:41 AM CHANNEL MARKETING COORDINATOR) Sodium 139 135 - 145 mmol/L Potassium, pl 4.2 3.3 - 4.9 mmol/L [facility] ([facility]) Chloride 103 97 - 110 mmol/L [facility] ([facility]) CO2 27 22 - 32 mmol/L [facility] ([facility]) Anion gap 9 2 - 15 mmol/L [facility] ([facility]) BUN 9 6 - 25 mg/dL [facility] ([facility]) Creatinine 0.94 0.60 - 1.10 mg/dL [facility] ([facility]) Glucose 79 70 - 199 mg/dL [facility] ([facility]) Comment: Interpretive Data Fasting glucose >/= 126 mg/dl is diagnostic for diabetes. Fasting is defined as no caloric intake for at least 8 hours. Fasting glucose between 100 mg/dl to 125 mg/dl is diagnostic of prediabetes. In a patient with classic symptoms of hyperglycemia or hyperglycemic crisis, a random glucose >/= 200 mg/dl is diagnostic for diabetes. In the absence of unequivocal hyperglycemia, results should be confirmed by repeat testing. The classification and Diagnosis of Diabetes Diabetes Care 2021; 46: S19-S40. Current interpretive data was last revised 2022. Calcium 9.7 8.5 - 10.3 mg/dL [facility] ([facility]) Bilirubin, total 0.4 0.1 - 1.2 mg/dL [facility] ([facility]) Protein, pl 7.2 6.5 - 8.5 g/dL [facility] ([facility]) Albumin 4.5 3.5 - 5.0 g/dL [facility] ([facility]) Alk phos 84 40 - 130 Units/L [facility] ([facility]) ALT 12 7 - 45 Units/L [facility] ([facility]) AST 20 10 - 45 Units/L [facility] ([facility]) Blood 07/11/2025 7:41 AM CHANNEL MARKETING COORDINATOR 07/11/2025 9:12 AM CHANNEL MARKETING COORDINATOR us Kenton Roman MD LAB BLOOD ORDERABLE S Final Result [facility] ([facility]) [facility] Department [place] [address] * Screening Mammogram Bilateral W Michel (01/08/2023 4:25 PM CDT) Anatomical Region Laterality Modality Breast Bilateral Mammography 01/08/2023 4:42 PM CDT Impressions 01/08/2023 4:42 PM CDT There is no mammographic evidence of malignancy. A 1 year screening mammogram is recommended. BI-RADS: 1 - Negative. The patient has been or will be contacted. The patient will be entered into a reminder system with a target due date of 1 year for her next mammogram. Electronically signed by: Iris Penny M.D. Narrative 01/08/2023 4:42 PM CDT EXAMINATION: SCREENING MAMMOGRAM BILATERAL W MICHEL ORDERING HEALTHCARE PROVIDER: BEE DOVE HISTORY: Routine screening mammography. COMPARISON: Baseline study TECHNIQUE: CC and MLO views of the bilateral breasts were obtained with digital technique using breast tomosynthesis with C view. Computer aided detection was utilized. FINDINGS: DENSITY: There are scattered fibroglandular elements in the bilateral breasts. BREASTS: There are no suspicious masses, suspicious calcifications, or other suspicious findings in either breast. There has been no suspicious interval change. 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
--- OUTSIDE RECORDS SUMMARY | 2025-08-19 09:38 | XMS_ITS | Clinical Summary ---
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 Gender Identity Not on file Sexual Orientation Not on file Last Filed Vital Signs Vital Sign Reading Time Taken Comments Blood Pressure 110/62 01/26/2021 8:15 AM CDT Pulse - - Temperature - - Respiratory Rate - - Oxygen Saturation - - Inhaled Oxygen Concentration - - Weight 122 kg (269 lb) 01/26/2021 8:15 AM CDT Height 188 cm (6' 2) 01/26/2021 8:15 AM CDT Body Mass Index 34.54 01/26/2021 8:15 AM CDT Plan of Treatment Health Maintenance Due Date Last Done Comments DTAP/TDAP/TD VACCINES (1 - Tdap) 1997 HEPATITIS B VACCINES (1 of 3 - 19+ 3-dose series) 04/02 HPV/Cotest (21-29) 1999 CERVICAL CANCER SCREENING 2008 HPV/Cotest (30-65) 2008 PAP SMEAR 2008 BREAST CANCER SCREENING 2018 COLORECTAL SCREENING 2023 Colorectal Cancer Screening 2023 FIT-DNA Q 3 years 2023 FIT/FOBT Q 1 year 2023 Flex Sig/CT Colonography Q 5 years 2023 INFLUENZA VACCINE (#1) 2025
[2025-08-19 09:40] LABS: Troponin I < 0.012 ng/mL (0.000-0.034)
--- NOTE | 2025-08-19 11:26 | ECG_ITS ---
Test Date: 2025-08-19 11:49:27 Measurements Intervals Sikes Rate: 60 P: 56 WV: 180 QRS: 17 QRSD: 95 T: 37 QT: 433 QTc: 436 Interpretive Statements SINUS RHYTHM NORMAL ECG Compared to ECG 08/19/2025 09:09:58 Sinus bradycardia no longer present Electronically Signed On 08-19-2025 11:51:27 ELECTRIC RELAY TESTER by Domo Kelley D.O.
[2025-08-19 12:01] LABS: Add Urine Microscopic? YES; Appearance Urine Clear (Clear); Glucose Urine UA Negative (Negative); Leukocyte Esterase Ur 1+ LEU/UL (Negative); Nitrate Urine Negative (Negative); Non Pathogenic Casts 0-2; Specific Grav Ur 1.008 (1.001-1.035)
[2025-08-19 12:20] LABS: Troponin I 0.020 ng/mL (0.000-0.034)
== END 2025-08-19 13:23 | disposition home or self-care (01) ==
PROVIDERS: Emergency Provider Nurse Practitioner Family
DX: S29.012A Strain of muscle and tendon of back wall of thorax, initial encounter (principal); R00.1 Bradycardia, unspecified; F41.9 Anxiety disorder, unspecified; E78.5 Hyperlipidemia, unspecified; Z87.891 Personal history of nicotine dependence; X50.0XXA Overexertion from strenuous movement or load, initial encounter
CPT/HCPCS: 36415; 71045; 80053; 81001; 84484; 85025; 87086; 93005; 96374; 99284; A9270